=== PATIENT | female | born 1995 | race African-American/Black ===

== ENCOUNTER 2024-02-28 12:39 | Emergency (ER) | payer OTHER, SELFPAY ==
[2024-02-28 12:47] VITALS: BP 123/75; PULSE 76; RESP 16; TEMP 35.9; O2SAT 100
--- NOTE | 2024-02-28 12:56 | ED.FEMALEGU ---
HPI - Female Genitourinary General Chief complaint: Urogenital-Female Stated complaint: Uti Symptoms Source: patient and RN notes reviewed Mode of arrival: ambulatory Limitations: no limitations History of Present Illness HPI Narrative: 28-year-old female presented for complaint of vaginal irritation, redness, itching and white discharge. Onset yesterday. States she believes it is sensitivity related to changing soaps. Patient use triamcinolone cream with some relief. Reports hx bartholin cyst. Denies hx HSV. Denies recent unprotected sexual activity. Due to started menses within 2 days. Related Data Allergies Allergy/AdvReac Type Severity Reaction Status Date / Time No Known Allergies Allergy Unverified 04/01/22 10:10 Review of Systems Review of Systems: CONSTITUTIONAL: Denies body aches, fever, chills, or sweats. CARDIOVASCULAR: Denies chest pain, palpitations, or edema. RESPIRATORY: Denies cough or dyspnea. GASTROINTESTINAL: Denies abdominal pain, nausea, vomiting, or diarrhea. GENITOURINARY: Reports vaginal discharge Denies dysuria, frequency, urgency, hematuria, flank pain SKIN: Denies rash, itching, or wounds. MUSCULOSKELETAL: Denies back pain or myalgia. [facility] Past Medical History Medical History (Updated 02/28/24 @ 13:35 by Madelyn Muro APRN) Bartholin cyst Social History Social History Smoking status: Never smoker Alcohol intake: current Drinks per week: 1 Alcohol use details: soically Substance use: never Substance use type: does not use Living arrangements: with family Spiritual care concerns: No Comments At time of signature, I have reviewed and agree with nursing past medical, surgical, social and family history unless otherwise noted. Please see nursing chart for further information. There is no relevant family history pertinent to the presenting complaint Exam Narrative: GENERAL: Well-appearing ENT: Mucous membranes pink and moist. CHEST: No respiratory distress. Clear to auscultation. HEART: Regular rate and rhythm. ABDOMEN: Soft, nontender, nondistended, normal active bowel sounds. No CVA tenderness : External labia appears normal without lesions or ulcerations. normal vaginal introitus, pink with thick white discharge; no bleeding, foreign body, laceration or lesions. No swelling. Nontender. normal appearance of the cervix, closed. Chaperoned by Adriane LUNA SKIN: Warm, dry, no rash. NEURO: No focal deficits. Alert and oriented x3. Gait steady. PSYCH: Normal affect. Course Course Emergency Course: Patient is aware of diagnosis, understands and agrees to treatment plan. Anticipatory guidance given. Patient agrees to follow-up as directed and is aware of reasons to seek care at the emergency department. Portions of this record may have been created with voice recognition software [facility] Care: [facility] Vital Signs Vital signs: Vital Signs Temperature 96.7 F L 02/28/24 12:47 Pulse Rate 76 02/28/24 12:47 Respiratory Rate 16 02/28/24 12:47 Blood Pressure 123/75 02/28/24 12:47 Pulse Oximetry 100 02/28/24 12:47 Temperature 96.7 F L 02/28/24 12:47 Pulse Rate 76 02/28/24 12:47 Respiratory Rate 16 02/28/24 12:47 Blood Pressure 123/75 02/28/24 12:47 Pulse Oximetry 100 02/28/24 12:47 Reviewed MDM - Female Genitourinary MDM Narrative Medical decision making narrative: Urine preg Neg Urine dip reviewed with pt. Will send urine culture. Patient presenting with concern for vaginal irritation and discharge. Vaginal swab collected for GC, chlamydia, trich, BV and yeast. Informed Pt will be contacted w/ results when they become available if they are positive. Discussed with patient that it takes up to 7 days for results of cultures to be released and explained that we may treat empirically at this time. Treatment only for yeast at this time. I h
[2024-02-28 13:31] LABS: BEDSIDEPREGUCG Negative; EDUAAPPEAR Cloudy; EDUABILI Negative; EDUABLOOD Negative; EDUACOLOR1 Light/Pale; EDUAGLUCOSE Negative; EDUAKETONE Negative; EDUALEUKO 2+; EDUANITRATE Negative; EDUAPROTEIN Trace
[2024-02-28 19:08] LABS: Trichomonas Vag PCR NOT DETECTED (NOT DETECTE)
[2024-02-28 19:31] LABS: Chlamydia trachomatis NOT DETECTED (NOT DETECTE); Neisseria gonorrhoeae PCR NOT DETECTED (NOT DETECTE)
[2024-03-01 14:43] LABS: Bacterial Vaginosis POSITIVE (NEGATIVE)
--- NOTE | 2024-03-03 13:31 | PC.NURSE ---
UNABLE TO CONTACT PT REGARDING HER POSITIVE BACTERIAL VAGINOSIS CULTURE. ALL NUMBERS IN PT RECORD ARE EITHER DISCONNECTED OR WRONG NUMBERS. LETTER SENT TO NOTIFY PT TO RETURN CALL TO [facility]. PT NEEDS NOTIFIED THAT TINIDAZOLE 500MG PO BID X5 DAYS, NO REFILLS WAS SENT TO PHARMACY.
== END 2024-02-28 13:43 | disposition home or self-care (01) ==
PROVIDERS: Emergency Provider Nurse Practitioner Family
DX: N76.0 Acute vaginitis (principal)
CPT/HCPCS: 81003; 81025; 81513; 87070; 87086; 87088; 87491; 87591; 87661; 99213; G0463